=== PATIENT | female | born 1960 | race Caucasian/White ===

== ENCOUNTER → 2018-08-23 | Outpatient (CLI) | payer OTHER ==
--- NOTE | 2018-08-25 08:08 | MM ---
Reason for exam: screening (asymptomatic). Last mammogram was performed 3 years and 1 month ago. History: Benign left US cyst aspiration of the left breast, August 06, 2007. Benign US left CoreBiopsy of both breasts, August 06, 2007. Benign cyst aspiration of the left breast, April 29, 2004. Benign ultrasound-guided cyst aspiration of the left breast, April 29, 2004. Benign ultrasound-guided core biopsy of the left breast, April 29, 2004. Physical Findings: A clinical breast exam by your physician is recommended on an annual basis and results should be correlated with mammographic findings. MG Screening Mammo w CAD Bilateral CC and MLO view(s) were taken. Prior study comparison: July 26, 2015, bilateral MG 3d screening mammo w/cad. October 27, 2013, bilateral digital screening mammo w/CAD. The breast tissue is heterogeneously dense. This may lower the sensitivity of mammography. Previous mammotome biopsy in the left breast. There is no discrete abnormality. No significant changes when compared with prior studies. ASSESSMENT: Benign, BI-RAD 2 RECOMMENDATION: Routine screening mammogram of both breasts in 1 year.
== END | disposition home or self-care (01) ==
LOC: RADMAMWWP 10:06
PROVIDERS: ATTEND Family Medicine
DX: Z12.31 Encounter for screening mammogram for malignant neoplasm of breast (principal)
CPT/HCPCS: 77067

== ENCOUNTER → 2019-03-19 | Outpatient (CLI) | payer OTHER ==
--- NOTE | 2019-03-19 17:40 | MR ---
EXAMINATION TYPE: MR brain wo/w con DATE OF EXAM: 03/19/2019 COMPARISON: 06/16/2016 HISTORY: Brain Tumor TECHNIQUE: Multiplanar, multisequence images of the brain and brainstem is performed without and with IV contras t, utilizing 7 mL intravenous Gadavist . FINDINGS: Ventricles have normal size. There is no mass effect nor midline shift. There is no sign of intracranial hemorrhage. There is no evidence of cortical infarct. I see no evidence of cerebral mayela ma. Brainstem is intact. There is 5 mm focus of increased signal in the white matter left frontal lob e on the FLAIR images. There are tiny 2 to 3 mm foci of increased signal mathis-white matter junction i n both cerebral hemispheres. Total number of lesions is approximately 7. There is similar 4 mm focus right posterior temporal lobe. Brainstem is intact. Corpus callosum is intact. Sella turcica appears normal. Contrast images show no pathologic enhancement. There is normal contrast opacification of the venous sinuses. There is no evidence of posterior fossa mass. IMPRESSION: Isolated small white matter high signal foci as above are nonspecific and could relate to microvascul ar ischemia. There is not a significant change compared to previous MR scan. No evidence of a tumor.
== END | disposition home or self-care (01) ==
LOC: RADMRIMAIN 11:38
PROVIDERS: ATTEND Psychiatry & Neurology Neurology
DX: C71.9 Malignant neoplasm of brain, unspecified (principal)
CPT/HCPCS: 70553; A9585

== ENCOUNTER → 2019-08-31 | Outpatient (CLI) | payer OTHER ==
--- NOTE | 2019-09-01 13:43 | MM ---
Reason for exam: screening (asymptomatic). Last mammogram was performed 1 year ago. History: Benign left US cyst aspiration of the left breast, August 06, 2007. Benign US left CoreBiopsy of both breasts, August 06, 2007. Benign cyst aspiration of the left breast, April 29, 2004. Benign ultrasound-guided cyst aspiration of the left breast, April 29, 2004. Benign ultrasound-guided core biopsy of the left breast, April 29, 2004. Physical Findings: A clinical breast exam by your physician is recommended on an annual basis and results should be correlated with mammographic findings. MG Screening Mammo w CAD Bilateral CC and MLO view(s) were taken. Prior study comparison: August 23, 2018, bilateral MG screening mammo w CAD. July 26, 2015, bilateral MG 3d screening mammo w/cad. The breast tissue is heterogeneously dense. This may lower the sensitivity of mammography. Benign appearing bilateral calcifications. No suspicious abnormality. Left biopsy marker noted. No significant changes when compared with prior studies. ASSESSMENT: Benign, BI-RAD 2 RECOMMENDATION: Routine screening mammogram of both breasts in 1 year.
== END | disposition home or self-care (01) ==
LOC: RADMAMWWP 11:15
PROVIDERS: ATTEND Family Medicine
DX: Z12.31 Encounter for screening mammogram for malignant neoplasm of breast (principal)
CPT/HCPCS: 77067

== ENCOUNTER → 2021-11-27 | Outpatient (CLI) | payer OTHER ==
--- NOTE | 2021-11-28 12:31 | MM ---
Reason for exam: screening (asymptomatic). Last mammogram was performed 2 years and 3 months ago. History: Patient is postmenopausal. Benign left US cyst aspiration of the left breast, August 06, 2007. Benign US left CoreBiopsy of both breasts, August 06, 2007. Benign cyst aspiration of the left breast, April 29, 2004. Benign ultrasound-guided cyst aspiration of the left breast, April 29, 2004. Benign ultrasound-guided core biopsy of the left breast, April 29, 2004. Physical Findings: A clinical breast exam by your physician is recommended on an annual basis and results should be correlated with mammographic findings. MG 3D Screening Mammo W/Cad Bilateral CC and MLO view(s) were taken. Prior study comparison: August 31, 2019, bilateral MG screening mammo w CAD. August 23, 2018, bilateral MG screening mammo w CAD. The breast tissue is heterogeneously dense. This may lower the sensitivity of mammography. Previous mammotome biopsy in the left breast. There is no discrete abnormality including area of concern. ASSESSMENT: Incomplete: need additional imaging evaluation, BI-RAD 0 RECOMMENDATION: Ultrasound of the right breast. Manage patient on a clinical basis. [facility] will attempt to contact patient to return for ultrasound.
== END | disposition home or self-care (01) ==
LOC: RADMAMWWP 11:10
PROVIDERS: ATTEND Family Medicine
DX: Z12.31 Encounter for screening mammogram for malignant neoplasm of breast (principal); Z78.0 Asymptomatic menopausal state
CPT/HCPCS: 77063; 77067

== ENCOUNTER → 2021-12-16 | Outpatient (CLI) | payer OTHER ==
--- NOTE | 2021-12-27 11:32 | USB ---
Patient History: Menarche at age 13. First Full-Term at age 32. Late child-bearing (after 32). Postmenopausal. 08/06/2007, Benign Cyst Aspiration on the left side. 08/06/2007, Bilateral Benign Core Biopsy. 04/29/2004, Benign Cyst Aspiration on the left side. 04/29/2004, Benign Ultrasound-Guided Core Biopsy on the left side. 04/29/2004, Benign Ultrasound-Guided Cyst Aspiration on the left side. Risk Values: [place] 5 year model risk: 3.1%. NCI Lifetime model risk: 16.3%. Technique: Method: Whole Breast Handheld. Prior Study Comparison: 08/23/2018 Bilateral Screening Mammogram, [facility]. 08/31/2019 Bilateral Screening Mammogram, [facility]. 11/27/2021 Bilateral Screening Mammogram, [facility]. Findings: The whole breast of the right breast and the axilla of the right breast were scanned. Finding 1: Simple cyst. Laterality: Right. Size 6 x 6 x 6 mm. 10 O'clock Quadrant: Upper outer. Depth: Posterior. Region: Retroareolar. Shape: Round or Oval. Margin: Circumscribed (Well-Defined or Sharply-Defined). Simple appearing 6 mm thin-walled cyst right breast. No concerning solid or cystic masses. Overall Assessment: Benign, BI-RAD 2 Management: Screening Mammogram of both breasts in 1 year. Back on schedule. Manage symptoms of pain on clinical basis. A clinical breast exam by your physician is recommended on an annual basis and results should be correlated with mammographic findings. Electronically signed and approved by: Howard Mora M.D.
== END | disposition home or self-care (01) ==
LOC: RADUSWWP 14:43
PROVIDERS: ATTEND Family Medicine
DX: N60.01 Solitary cyst of right breast (principal); Z78.0 Asymptomatic menopausal state

== ENCOUNTER → 2022-12-17 | Outpatient (CLI) | payer OTHER ==
--- NOTE | 2022-12-18 20:34 | MM ---
Reason for Exam: Screening (asymptomatic). Last screening mammogram was performed 12 month(s) ago. Patient History: Menarche at age 13. First Full-Term at age 32. Late child-bearing (after 32). Postmenopausal. 08/06/2007, Benign Cyst Aspiration on the left side. 08/06/2007, Bilateral Benign Core Biopsy. 04/29/2004, Benign Cyst Aspiration on the left side. 04/29/2004, Benign Ultrasound-Guided Core Biopsy on the left side. 04/29/2004, Benign Ultrasound-Guided Cyst Aspiration on the left side. Risk Values: [place] 5 year model risk: 3.3%. NCI Lifetime model risk: 15.9%. Prior Study Comparison: 05/27/2006 Bilateral Screening Mammogram, [facility]. 07/13/2007 Bilateral Diagnostic Mammogram, [facility]. 07/13/2007 Bilateral Diagnostic Ultrasound, [facility]. 03/08/2008 Left Diagnostic Ultrasound, [facility]. 08/03/2008 Bilateral Diagnostic Mammogram, [facility]. 08/03/2008 Bilateral Diagnostic Ultrasound, [facility]. 09/05/2009 Bilateral Diagnostic Mammogram, [facility]. 09/05/2009 Right Diagnostic Ultrasound, [facility]. 03/27/2010 Bilateral Diagnostic Ultrasound, [facility]. 01/21/2012 Bilateral Diagnostic Mammogram, [facility]. 01/21/2012 Bilateral Diagnostic Ultrasound, [facility]. 10/27/2013 Bilateral Screening Mammogram, [facility]. 06/29/2014 Right Diagnostic Ultrasound, [facility]. 07/26/2015 Bilateral Screening Mammogram, [facility]. 08/13/2015 Bilateral Diagnostic Ultrasound, [facility]. 08/23/2018 Bilateral Screening Mammogram, [facility]. 08/31/2019 Bilateral Screening Mammogram, [facility]. 11/27/2021 Bilateral Screening Mammogram, [facility]. 12/16/2021 Right US breast workup limited RT, [facility]. Tissue Density: The breast tissue is heterogeneously dense. This may lower the sensitivity of mammography. Findings: Analyzed By CAD. Unchanged left-sided asymmetric densities. Benign bilateral oil cyst calcifications. Microclip in the left breast from prior biopsy. There is no suspicious group of microcalcifications or new suspicious mass in either breast. Overall Assessment: Benign, BI-RAD 2 Management: Screening Mammogram of both breasts in 1 year. See note below in regards to patient's increased 5 year [place] score. Patient should continue monthly self-breast exams. A clinical breast exam by your physician is recommended on an annual basis. This exam should not preclude additional follow-up of suspicious palpable abnormalities. Note on [place] scores and lifetime risk: 1. A [place] score greater than 3% is considered moderate risk. If this is the case, consider specialist referral to assess eligibility for a risk reducing agent. 2. If overall lifetime risk for the development of breast cancer is 20% or higher, the patient may qualify for future screening with alternating mammogram and breast MRI. Electronically signed and approved by: Jada Amaro M.D. Radiologist
== END | disposition home or self-care (01) ==
LOC: RADMAMWWP 13:26
PROVIDERS: ATTEND Family Medicine
DX: Z12.31 Encounter for screening mammogram for malignant neoplasm of breast (principal); Z78.0 Asymptomatic menopausal state
CPT/HCPCS: 77063; 77067